=== PATIENT | female | born 1955 | race African-American/Black ===

== ENCOUNTER → 2017-03-10 | Day surgery (SDC) | payer BC | END | disposition home or self-care (01) | LOC: RAD 11:19 | PROVIDERS: ATTEND Family Medicine | DX: M99.01 Segmental and somatic dysfunction of cervical region (principal); M79.2 Neuralgia and neuritis, unspecified | CPT/HCPCS: 72040 ==

== ENCOUNTER → 2017-03-19 | Outpatient (CLI) | payer BC ==
[2017-03-19 10:54] LABS: CLARITY URINE CLEAR (CLEAR); COLOR URINE YELLOW (YELLOW); GLUCOSE URINE NEGATIVE (NEGATIVE); KETONES URINE NEGATIVE (NEGATIVE); LEUKOCYTE ESTERASE URINE NEGATIVE (NEGATIVE); NITRITE URINE NEGATIVE (NEGATIVE); OCCULT BLOOD URINE TRACE (NEGATIVE); PH URINE 6.5 (4.5-8.0); PROTEIN URINE NEGATIVE (NEGATIVE); SPECIFIC GRAVITY URINE 1.023 (1.005-1.030)
[2017-03-19 11:01] LABS: PARTIAL THROMBOPLASTIN TIME 31.5 sec (23.4-31.0); PROTHROMBIN TIME 10.2 sec (9.4-11.6)
[2017-03-19 11:10] LABS: BASOPHILS % 0.8 % (0.0-2.0); EOSINOPHILS % 2.4 % (0.0-5.0); HEMATOCRIT. 38.7 % (36.0-48.0); HEMOGLOBIN. 12.6 g/dL (12.0-16.0); MEAN CORPUSCULAR HEMOGLOBIN 24.1 pg (28.0-32.0); MONOCYTES % 7.7 % (2.0-8.0); NEUTROPHILS % 58.1 % (40.0-76.0); PLATELET 220 x1000/uL (130-400); RED BLOOD CELL COUNT 5.23 mill/uL (4.2-5.4)
[2017-03-19 11:29] LABS: CARBON DIOXIDE 29 mEq/L (21-32); CHLORIDE 106 mEq/L (98-107); HDL CHOLESTEROL 65 mg/dL (40-59); LDL CHOLESTEROL 129 mg/dL (5-100)
== END | disposition home or self-care (01) ==
LOC: LAB 09:34
PROVIDERS: ATTEND Family Medicine
DX: Z00.00 Encounter for general adult medical examination without abnormal findings (principal)
CPT/HCPCS: 36415; 80053; 80061; 81001; 83036; 84443; 85025; 85610; 85730; 93005

== ENCOUNTER → 2017-03-24 | Outpatient (CLI) | payer BC | END | disposition home or self-care (01) | LOC: MRI 09:51 | PROVIDERS: ATTEND Family Medicine | DX: Z12.31 Encounter for screening mammogram for malignant neoplasm of breast (principal); G43.809 Other migraine, not intractable, without status migrainosus; R42 Dizziness and giddiness | CPT/HCPCS: 70551; G0202 ==

== ENCOUNTER → 2018-07-06 | Outpatient (CLI) | payer BC | END | disposition home or self-care (01) | LOC: RAD 06:12 | PROVIDERS: ATTEND Family Medicine | DX: R06.02 Shortness of breath (principal); R05 Cough | CPT/HCPCS: 71046 ==

== ENCOUNTER → 2018-10-20 | Outpatient (CLI) | payer BC ==
[2018-10-20 07:50] LABS: BASOPHILS % 1.2 % (0.0-2.0); EOSINOPHILS % 1.4 % (0.0-5.0); HEMATOCRIT. 38.9 % (36.0-48.0); HEMOGLOBIN. 12.6 g/dL (12.0-16.0); LYMPHOCYTES % 34.9 % (20.0-50.0); MEAN CORPUSCULAR HEMOGLOBIN 24.1 pg (28.0-32.0); MEAN CORPUSCULAR VOLUME 74.6 fL (81.0-99.0); MEAN PLATELET VOLUME 8.6 fl (7.4-10.4); MONOCYTES % 7.6 % (2.0-8.0); NEUTROPHILS % 54.9 % (40.0-76.0); PLATELET 205 x1000/uL (130-400); RED BLOOD CELL COUNT 5.21 mill/uL (4.2-5.4); RED CELL DISTRIBUTION WIDTH 15.7 % (11.6-14.6)
[2018-10-20 07:58] LABS: CHLORIDE 109 mEq/L (98-107)
[2018-10-20 08:08] LABS: HDL CHOLESTEROL 62 mg/dL (40-59); LDL CHOLESTEROL 97 mg/dL (5-100)
== END | disposition home or self-care (01) ==
LOC: LAB 06:35
PROVIDERS: ATTEND Family Medicine
DX: Z00.00 Encounter for general adult medical examination without abnormal findings (principal)
CPT/HCPCS: 36415; 80061; 83036; 84443

== ENCOUNTER → 2020-02-13 | Outpatient (CLI) | payer BC ==
[2020-02-13 09:32] LABS: BASOPHILS % 1.1 % (0.0-2.0); EOSINOPHILS % 2.8 % (0.0-5.0); HEMATOCRIT. 37.4 % (36.0-48.0); HEMOGLOBIN. 11.9 g/dL (12.0-16.0); LYMPHOCYTES % 31.8 % (20.0-50.0); MEAN CORPUSCULAR HEMOGLOBIN 24.1 pg (28.0-32.0); MEAN CORPUSCULAR VOLUME 75.6 fL (81.0-99.0); MEAN PLATELET VOLUME 8.3 fl (7.4-10.4); MONOCYTES % 9.2 % (2.0-8.0); NEUTROPHILS % 55.1 % (40.0-76.0); PLATELET 209 x1000/uL (130-400); RED BLOOD CELL COUNT 4.95 mill/uL (4.2-5.4); RED CELL DISTRIBUTION WIDTH 15.9 % (11.6-14.6)
[2020-02-13 09:36] LABS: CHLORIDE 108 mEq/L (98-107)
[2020-02-13 09:44] LABS: LDL CHOLESTEROL 113 mg/dL (5-100)
[2020-02-13 09:46] LABS: HDL CHOLESTEROL 60 mg/dL (40-59)
== END | disposition home or self-care (01) ==
LOC: LAB 09:06
PROVIDERS: ATTEND Family Medicine
DX: Z00.00 Encounter for general adult medical examination without abnormal findings (principal)
CPT/HCPCS: 36415; 80053; 80061; 83036; 84443; 85025

== ENCOUNTER → 2020-12-19 | Outpatient (CLI) | payer BC ==
[2020-12-19 08:48] LABS: CHLORIDE 106 mEq/L (98-107)
[2020-12-19 08:56] LABS: LDL CHOLESTEROL 117 mg/dL (5-100)
[2020-12-19 09:01] LABS: HDL CHOLESTEROL 66 mg/dL (40-59)
== END | disposition home or self-care (01) ==
LOC: LAB 07:56
PROVIDERS: ATTEND Family Medicine
DX: M17.12 Unilateral primary osteoarthritis, left knee (principal); M23.92 Unspecified internal derangement of left knee
CPT/HCPCS: 36415; 73560; 80053; 80061; 83036

== ENCOUNTER → 2021-03-21 | Outpatient (CLI) | payer BC | END | disposition home or self-care (01) | LOC: MRI 07:45 | PROVIDERS: ATTEND Family Medicine | DX: M17.12 Unilateral primary osteoarthritis, left knee (principal); R60.0 Localized edema; M94.262 Chondromalacia, left knee | CPT/HCPCS: 73721 ==

== ENCOUNTER → 2021-09-30 | Outpatient (CLI) | payer OTHER | END | disposition home or self-care (01) | LOC: MRI 11:11 | PROVIDERS: ATTEND Family Medicine Adult Medicine | DX: M47.812 Spondylosis without myelopathy or radiculopathy, cervical region (principal); M48.02 Spinal stenosis, cervical region; M50.221 Other cervical disc displacement at C4-C5 level; M50.222 Other cervical disc displacement at C5-C6 level; M50.223 Other cervical disc displacement at C6-C7 level; M25.78 Osteophyte, vertebrae | CPT/HCPCS: 72141 ==

== ENCOUNTER → 2022-04-28 | Outpatient (CLI) | payer OTHER | END | disposition home or self-care (01) | LOC: MRI 09:54 | DX: S83.242A Other tear of medial meniscus, current injury, left knee, initial encounter (principal); M75.111 Incomplete rotator cuff tear or rupture of right shoulder, not specified as traumatic; M17.12 Unilateral primary osteoarthritis, left knee; M94.262 Chondromalacia, left knee; M25.862 Other specified joint disorders, left knee; M77.8 Other enthesopathies, not elsewhere classified; X58.XXXA Exposure to other specified factors, initial encounter; Y93.89 Activity, other specified; Y92.89 Other specified places as the place of occurrence of the external cause; Y99.8 Other external cause status | CPT/HCPCS: 73221; 73721 ==

== ENCOUNTER → 2022-08-18 | Outpatient (CLI) | payer OTHER | END | disposition home or self-care (01) | LOC: CT 10:38 | DX: M48.02 Spinal stenosis, cervical region (principal); M47.812 Spondylosis without myelopathy or radiculopathy, cervical region; M50.20 Other cervical disc displacement, unspecified cervical region; M25.78 Osteophyte, vertebrae ==

== ENCOUNTER → 2023-02-10 | Outpatient (CLI) | payer OTHER | END | disposition home or self-care (01) | LOC: MRI 09:49 | DX: M47.22 Other spondylosis with radiculopathy, cervical region (principal); M48.02 Spinal stenosis, cervical region; M50.11 Cervical disc disorder with radiculopathy, high cervical region; M25.78 Osteophyte, vertebrae; M19.012 Primary osteoarthritis, left shoulder; M75.42 Impingement syndrome of left shoulder; M25.812 Other specified joint disorders, left shoulder | CPT/HCPCS: 72141; 73221 ==

== ENCOUNTER → 2025-01-23 | Outpatient (CLI) | payer OTHER | END | disposition home or self-care (01) | LOC: MRI 10:40 | PROVIDERS: ATTEND Orthopaedic Surgery | DX: M47.22 Other spondylosis with radiculopathy, cervical region (principal); M47.814 Spondylosis without myelopathy or radiculopathy, thoracic region; M48.03 Spinal stenosis, cervicothoracic region; M50.13 Cervical disc disorder with radiculopathy, cervicothoracic region; M50.11 Cervical disc disorder with radiculopathy, high cervical region; M50.121 Cervical disc disorder at C4-C5 level with radiculopathy; M43.13 Spondylolisthesis, cervicothoracic region; M25.78 Osteophyte, vertebrae; M75.42 Impingement syndrome of left shoulder; R29.890 Loss of height | CPT/HCPCS: 72141 ==